=== PATIENT | female | born 1960 | race African-American/Black ===

== ENCOUNTER 2022-08-07 14:53 | Inpatient (IN) ==
[2022-08-07] MEDS ORDERED: PROMETHAZINE 25 MG/1 ML VIAL IM STA (15:45)
[2022-08-07] MEDS ORDERED: SODIUM CHLORIDE 0.9% 1,000 ML IV STA (15:48)
[2022-08-07 16:22] LABS: Basophils % 0.4 % (0.0-0.8); Eosinophils # 0.2 10*3/uL (0.0-0.87); Eosinophils % 1.4 % (0.00-10.9); Hematocrit 46.3 VOL% (35.7-47.0); Hemoglobin 14.6 GM/DL (12.0-16.0); Immature Granulocytes % 0.5 %; Immature Granulocytes Absolute 0.05 #; Lymphocytes # 2.5 10*3/uL (1.4-4.0); Lymphocytes % 23.1 % (21.3-54.2); Mean Corpuscular HGB Conc 31.5 GM/DL (32-36); Mean Corpuscular Volume 83.3 FL (87-102); Monocytes # 0.5 10*3/uL (0.11-0.8); Monocytes % 4.8 % (1.7-12.7); Neutrophils % 69.8 % (38.7-73.9); Platelet Count 394 T/CUMM (130-400); Red Blood Count 5.56 MC/CUMM (3.8-5.5); White Blood Count 10.7 T/CUMM (4-12)
[2022-08-07] MEDS ORDERED: ONDANSETRON 4 MG/2 ML VIAL IV STA (17:13)
[2022-08-07] MEDS ORDERED: ONDANSETRON 4 MG/2 ML VIAL ONE (17:14)
[2022-08-07 17:27] LABS: Albumin 3.9 G/DL (3.4-5.0); Bilirubin,Total 0.7 MG/DL (0.20-1.00); Calcium 10.1 MG/DL (8.5-10.1); Osmolality,Calculated 273.8 MOS/KG (273-304); Potassium 3.3 MMOL/L (3.5-5.1); Total Protein 8.5 G/DL (6.4-8.2)
[2022-08-07 17:57] LABS: Hyaline Casts,Urine 2 /LPF (0-3); Mucus,Urine Occasional /LPF (Occasional); RBC,Urine 2 /HPF (0-4); Squamous Epithelial Cell,Urine Few /HPF (0-10)
[2022-08-07 17:59] LABS: Urine Appearance Clear (Clear); Urine Color Yellow (Yellow); Urine pH 5.5 (4.5-8.0)
[2022-08-07] MEDS ORDERED: POTASSIUM CHLORIDE RIDER 20 MEQ/100 ML PREMIX IV STA (17:59)
[2022-08-07 18:00] LABS: Bilirubin,Urine Small mg/dL (Negative); Blood, Urine Negative (Negative); Glucose,Urine (UA) Negative (Negative); Ketones,Urine Negative (Negative); Nitrite,Urine Negative (Negative); Protein,Urine 30 mg/dL (Negative); Urine Urobilinogen 0.2 eU/dL (<2.0)
[2022-08-07 18:09] LABS: Risk Ratio 2.52; VLDL Cholesterol 13.8 MG/DL
[2022-08-07 18:09] LABS: Barbiturates Screen,Urine Negative (Negative); Benzodiazepines Screen,Urine Negative (Negative); Cannabinoid Screen,Urine Negative (Negative); Opiate Screen,Urine Negative (Negative); Phencyclidine Screen,Urine Negative (Negative)
[2022-08-07] MEDS: POTASSIUM CHLORIDE RIDER 10 MEQ/100 ML PREMIX IV SCH ×2 (19:37→22:04)
[2022-08-07] MEDS ORDERED: PROMETHAZINE INJ 12.5 MG in SODIUM CHLORIDE 0.9% 50 ML IV PRN (21:14)
[2022-08-07] MEDS: ONDANSETRON 4 MG/2 ML VIAL IV PRN (21:26)
[2022-08-07] MEDS ORDERED: PROMETHAZINE 25 MG/1 ML VIAL ONE (22:44)
[2022-08-07] MEDS: MORPHINE 2 MG/1 ML SYRINGE IV PRN (22:54)
[2022-08-07] MEDS: PANTOPRAZOLE 40 MG VIAL IV SCH (22:54)
[2022-08-07] MEDS: SODIUM CHLOR 0.9% KCL 20 MEQ 20 MEQ/1,000 ML BAG IV SCH (23:34)
[2022-08-08] MEDS: ONDANSETRON 4 MG/2 ML VIAL IV PRN ×2 (02:53→07:15)
[2022-08-08] MEDS: MORPHINE 2 MG/1 ML SYRINGE IV PRN ×2 (02:53→07:16)
[2022-08-08 05:12] LABS: Albumin 3.6 G/DL (3.4-5.0); Bilirubin,Total 0.7 MG/DL (0.20-1.00); Calcium 9.4 MG/DL (8.5-10.1); Osmolality,Calculated 279.7 MOS/KG (273-304); Potassium 4.7 MMOL/L (3.5-5.1); Total Protein 8.2 G/DL (6.4-8.2)
[2022-08-08] MEDS: SODIUM CHLOR 0.9% KCL 20 MEQ 20 MEQ/1,000 ML BAG IV SCH ×4 (05:40→21:09)
[2022-08-08] MEDS ORDERED: DEXTROSE 10% 250 ML BAG IV PRN (08:17)
[2022-08-08] MEDS ORDERED: GLUCAGON 1 MG VIAL IM PRN (08:17)
[2022-08-08] MEDS: METOPROLOL SUCCINATE XL 50 MG TABLET PO SCH (09:29)
[2022-08-08] MEDS: PANTOPRAZOLE 40 MG VIAL IV SCH ×2 (09:40→21:11)
[2022-08-08] MEDS: HYDROmorphone 1 MG/1 ML SYRINGE IV PRN ×3 (10:28→18:44)
[2022-08-08 10:45] LABS: Hepatitis B Core IgM Quant 0.16 Index; Hepatitis B Surface Ag Quant < 0.10 Index; Hepatitis B Surface Ag Result Non-Reactive (NonReactive); Hepatitis C Virus Ab Quant < 0.02 Index; Hepatitis C Virus Ab Result Non-Reactive (NonReactive)
[2022-08-08] MEDS: INSULIN LISPRO 100 UNIT/ML SUBCUT SCH ×3 (12:08→21:09)
[2022-08-08] MEDS: lisinopriL 20 MG TABLET PO SCH (17:45)
[2022-08-08] MEDS: ATORVASTATIN 40 MG TABLET PO SCH (21:10)
[2022-08-08] MEDS: MONTELUKAST 10 MG TABLET PO SCH (21:10)
[2022-08-09] MEDS: SODIUM CHLOR 0.9% KCL 20 MEQ 20 MEQ/1,000 ML BAG IV SCH ×3 (05:16→20:50)
[2022-08-09] MEDS: INSULIN LISPRO 100 UNIT/ML SUBCUT SCH ×4 (07:51→20:48)
[2022-08-09 08:30] LABS: Albumin 3.1 G/DL (3.4-5.0); Bilirubin,Direct 0.41 MG/DL (0.0-0.20); Bilirubin,Indirect 0.5 MG/DL (0.0-1.0); Bilirubin,Total 0.9 MG/DL (0.20-1.00); Total Protein 6.6 G/DL (6.4-8.2)
[2022-08-09] MEDS: lisinopriL 20 MG TABLET PO SCH ×2 (08:55→09:49)
[2022-08-09] MEDS: METOPROLOL SUCCINATE XL 50 MG TABLET PO SCH (08:55)
[2022-08-09] MEDS: PANTOPRAZOLE 40 MG VIAL IV SCH ×2 (08:56→20:50)
[2022-08-09] MEDS: hydroCHLOROthiazide 25 MG TABLET PO SCH (09:00)
[2022-08-09] MEDS: MONTELUKAST 10 MG TABLET PO SCH (20:49)
[2022-08-09] MEDS: ATORVASTATIN 40 MG TABLET PO SCH (20:49)
[2022-08-09] MEDS ORDERED: CETIRIZINE 10 MG TABLET PO SCH (21:00)
[2022-08-09] MEDS ORDERED: ESCITALOPRAM 10 MG TABLET PO SCH (21:00)
[2022-08-10] MEDS: SODIUM CHLOR 0.9% KCL 20 MEQ 20 MEQ/1,000 ML BAG IV SCH (05:27)
[2022-08-10 06:15] LABS: Albumin 2.7 G/DL (3.4-5.0); Bilirubin,Direct 0.48 MG/DL (0.0-0.20); Bilirubin,Indirect 0.7 MG/DL (0.0-1.0); Bilirubin,Total 1.2 MG/DL (0.20-1.00)
[2022-08-10 07:10] VITALS: BP 157/77
[2022-08-10] MEDS: lisinopriL 20 MG TABLET PO SCH (08:31)
[2022-08-10] MEDS: METOPROLOL SUCCINATE XL 50 MG TABLET PO SCH (08:31)
[2022-08-10] MEDS: hydroCHLOROthiazide 25 MG TABLET PO SCH (08:31)
[2022-08-10] MEDS: PANTOPRAZOLE 40 MG VIAL IV SCH (08:32)
[2022-08-10] MEDS: INSULIN LISPRO 100 UNIT/ML SUBCUT SCH (08:33)
== END 2022-08-10 10:25 | disposition home or self-care (01) | DRG 439 ==
LOC: N.ED 14:53 → N.EDINP 19:33 → N.3E 08-08 09:21
PROVIDERS: ADMIT Family Medicine; ATTEND Family Medicine